=== PATIENT | female | born 1945 | race Caucasian/White ===

== ENCOUNTER 2017-12-18 14:32 | Observation (INO) | payer MEDICARE, BC ==
[~2017-12-18] VITALS: Ht 170.2 cm; Wt 59.1 kg
[~2017-12-18 14:32] MED LIST: None per pt
[2017-12-18] MEDS ORDERED: SODIUM CHLORIDE 0.9% 1,000ML IVBOLUS ONE (15:00)
[2017-12-18] MEDS ORDERED: SODIUM CHLORIDE FLUSH 10ML SYR IVF ONE (15:00)
[2017-12-18 15:12] LABS: BASOPHILS # (AUTO) 0.04 x10^3/uL (0-0.1); BASOPHILS % (AUTO) 1 % (0-1); EOSINOPHILS # (AUTO) 0.04 x10^3/uL (0-0.4); EOSINOPHILS % (AUTO) 1 % (1-7); LYMPHOCYTES # (AUTO) 1.28 x10^3/uL (1-3.4); LYMPHOCYTES % (AUTO) 22 % (22-44); MD NO; MEAN CORPUSCULAR HEMOGLOBIN 32.3 pg (27.0-34.8); MEAN CORPUSCULAR HGB CONC 35.1 g/dL (32.4-35.8); MEAN CORPUSCULAR VOLUME 92.2 fL (80-100); MEAN PLATELET VOLUME 8.3 fL (7.4-10.4); MONOCYTES # (AUTO) 0.45 x10^3/uL (0.2-0.8); MONOCYTES % (AUTO) 8 % (2-9); NEUTROPHILS % (AUTO) 68 % (42-75); PLATELET COUNT 206 x10^3/uL (130-400); RED BLOOD COUNT 3.87 x10^6/uL (3.82-5.3); RED CELL DISTRIBUTION WIDTH 12.7 % (9.6-15.2)
[2017-12-18 15:22] LABS: ALBUMIN 3.7 g/dL (3.4-5.0); ANION GAP 11 mmol/L (5-15); CALCIUM 8.5 mg/dL (8.5-10.1); CHLORIDE 110 mmol/L (98-107)
[2017-12-18 15:29] LABS: ALANINE AMINOTRANSFERASE 12 U/L (12-78); ALKALINE PHOSPHATASE 53 U/L (45-117); BILIRUBIN,TOTAL 0.7 mg/dL (0.2-1.0); TOTAL PROTEIN 6.5 g/dL (6.4-8.2); TROPONIN I < 0.015 ng/mL (0.000-0.045)
[2017-12-18] MEDS ORDERED: ASPIRIN 81 MG TABLET CHEW PO ONE (16:00)
[2017-12-18] MEDS ORDERED: LORazepam 1MG TABLET PO ONE (16:00)
[2017-12-18] MEDS ORDERED: ENALAPRILAT 1.25 MG/ML, 2ML IVPush PRN (17:00)
[2017-12-18] MEDS ORDERED: ENOXAPARIN 40 MG/0.4 ML SQ SCH (17:00)
[2017-12-18] MEDS ORDERED: ANAS1TAB PO (17:00)
[2017-12-18] MEDS ORDERED: ALEN10TA6 PO (17:01)
[2017-12-18] MEDS ORDERED: ASPIRIN 81 MG TABLET CHEW ONE (17:06)
[2017-12-18 17:17] LABS: FREE T4 (FREE THYROXINE) 1.3 ng/dL (0.76-1.46); THYROID STIMULATING HORMONE 1.45 mIU/L (0.358-3.740)
[2017-12-18 17:40] VITALS: BP 142/65
[2017-12-18] MEDS: SODIUM CHLORIDE 0.9% 1,000 ML IV SCH (18:00)
[2017-12-18 18:39] LABS: MICROSCOPIC AUTO
[2017-12-18 18:40] LABS: CULTURE INDICATED? YES
[2017-12-18 19:00] LABS: TROPONIN I < 0.015 ng/mL (0.000-0.045)
[2017-12-18 19:42] VITALS: BP 127/63
[2017-12-18 19:43] VITALS: BP 120/69
[2017-12-18 19:44] VITALS: BP 111/63
[2017-12-18] MEDS ORDERED: CHOL200024 PO (20:12)
[2017-12-18] MEDS ORDERED: ASPI-515 PO (20:12)
[2017-12-18] MEDS ORDERED: ASCO10004 PO (20:12)
[2017-12-18] MEDS ORDERED: CALC-545 PO (20:12)
[2017-12-18] MEDS ORDERED: ATORVASTATIN 40 MG TABLET PO SCH (21:00)
[2017-12-19] VITALS (7 sets, daily range): BP systolic 106–146; BP diastolic 61–75
[2017-12-19 01:10] LABS: TROPONIN I < 0.015 ng/mL (0.000-0.045)
[2017-12-19 05:15] LABS: BASOPHILS # (AUTO) 0.02 x10^3/uL (0-0.1); BASOPHILS % (AUTO) 1 % (0-1); EOSINOPHILS # (AUTO) 0.08 x10^3/uL (0-0.4); EOSINOPHILS % (AUTO) 2 % (1-7); LYMPHOCYTES # (AUTO) 1.62 x10^3/uL (1-3.4); LYMPHOCYTES % (AUTO) 37 % (22-44); MD NO; MEAN CORPUSCULAR HEMOGLOBIN 31.5 pg (27.0-34.8); MEAN CORPUSCULAR HGB CONC 33.9 g/dL (32.4-35.8); MEAN PLATELET VOLUME 7.8 fL (7.4-10.4); MONOCYTES # (AUTO) 0.53 x10^3/uL (0.2-0.8); MONOCYTES % (AUTO) 12 % (2-9); NEUTROPHILS # (AUTO) 2.12 x10^3/uL (1.8-6.8); NEUTROPHILS % (AUTO) 49 % (42-75); PLATELET COUNT 177 x10^3/uL (130-400); RED BLOOD COUNT 3.58 x10^6/uL (3.82-5.3)
[2017-12-19 05:22] LABS: ALBUMIN 3.2 g/dL (3.4-5.0); ANION GAP 6 mmol/L (5-15); CALCIUM 7.9 mg/dL (8.5-10.1); CHLORIDE 114 mmol/L (98-107)
[2017-12-19 05:28] LABS: ALANINE AMINOTRANSFERASE 13 U/L (12-78); ALKALINE PHOSPHATASE 49 U/L (45-117); BILIRUBIN,TOTAL 0.5 mg/dL (0.2-1.0); CREATININE 0.88 mg/dL (0.55-1.02); TOTAL PROTEIN 5.7 g/dL (6.4-8.2)
[2017-12-19] MEDS: SODIUM CHLORIDE 0.9% 1,000 ML IV SCH (05:44)
[2017-12-19] MEDS ORDERED: SULFAMETH./TRIMETHOPRIM DS 800MG/160MG TABLET PO SCH (09:00)
[2017-12-19] MEDS ORDERED: MIDODRINE 5 MG TABLET PO SCH (09:00)
[2017-12-19] MEDS ORDERED: ASPIRIN 81 MG TABLET CHEW PO SCH (09:00)
[2017-12-19] MEDS ORDERED: SULF-169 PO (14:20)
[2017-12-19] MEDS ORDERED: MIDO5TAB PO (14:20)
== END 2017-12-19 15:52 | disposition home or self-care (01) ==
LOC: ED 16:14 → EDIP 16:22 → INTOOBSV 16:22 → 4WST 17:29 → DCLOUNGE 12-19 15:38
PROVIDERS: ADMIT Internal Medicine; ATTEND Internal Medicine
DX: R55 Syncope and collapse (principal); E46 Unspecified protein-calorie malnutrition; I95.1 Orthostatic hypotension; N39.0 Urinary tract infection, site not specified; Z85.3 Personal history of malignant neoplasm of breast; M81.0 Age-related osteoporosis without current pathological fracture; I07.1 Rheumatic tricuspid insufficiency
CPT/HCPCS: 0399T; 36415; 70450; 71045; 80053; 81001; 83735; 84439; 84443; 84484; 85025; 85379; 87086; 93005; 93306; 93880; 96360; 96361; 96372; 97161; 99285; G0378; J1650; J7030